=== PATIENT | female | born 1940 | race Caucasian/White ===

== ENCOUNTER 2019-04-15 06:41 | Inpatient (IN) | payer OTHER ==
[2019-04-15] MEDS ORDERED: SEVOFLURANE 15 MIN (07:00)
[2019-04-15] MEDS ORDERED: CEFAZOLIN 1 GM INJ (07:00)
[2019-04-15] MEDS ORDERED: GLYCOPYRROLATE 0.4 MG INJ (07:00)
[2019-04-15] MEDS: LACTATED RINGER'S 1,000 ML IV (07:30)
[2019-04-15] MEDS ORDERED: PROPOFOL 20 ML (07:45)
[2019-04-15] MEDS ORDERED: LIDOCAINE 2% (SDV) 5 ML INJ (07:46)
[2019-04-15] MEDS ORDERED: ROCURONIUM 50 MG INJ ×2 (07:46→09:14)
[2019-04-15] MEDS ORDERED: MIDAZOLAM 1 MG/ML 2 ML INJ (07:47)
[2019-04-15] MEDS ORDERED: FENTAnyl 50 MCG/ML VIAL (07:48)
[2019-04-15] MEDS ORDERED: TRANEXAMIC ACID 1GM/100ML(PMX) 100 ML (07:55)
[2019-04-15] MEDS: TRANEXAMIC ACID 1GM/100ML(PMX) 20 ML IV (08:14)
[2019-04-15] MEDS: BACITRACIN 50000 UNITS INJ (09:03)
[2019-04-15] MEDS: POLYMYXIN B 500000 UNIT INJ (09:03)
[2019-04-15] MEDS: POLYMYXIN/BACITRACIN 1L IRRIG IRR (09:05)
[2019-04-15] MEDS ORDERED: ONDANSETRON 4 MG INJ (10:15)
[2019-04-15] MEDS ORDERED: DEXAMETHASONE 4 MG/ML 5 ML INJ (10:15)
[2019-04-15] MEDS ORDERED: BUPIVACAINE 0.5% (SDV) 30 ML INJ (10:15)
[2019-04-15] MEDS ORDERED: NEOSTIGMINE 3 MG/3 ML SYRINGE (10:25)
[2019-04-15] MEDS ORDERED: NALOXONE (0.4 MG/ML) INJ IV (11:00)
[2019-04-15] MEDS ORDERED: MAGNESIUM HYDROXIDE 30ML CUP PO (11:00)
[2019-04-15] MEDS ORDERED: MEPERIDINE 25 MG INJ IV (11:00)
[2019-04-15] MEDS ORDERED: NA PHOSPHATE/BIPHOS 133 ML ENEMA PR (11:00)
[2019-04-15] MEDS ORDERED: MIDAZOLAM 1 MG/ML 2 ML INJ IV (11:00)
[2019-04-15] MEDS ORDERED: ALBUTEROL 0.083% (NEB) 2.5 MG/3 ML AMP HHN (11:00)
[2019-04-15] MEDS ORDERED: BETHANECHOL 25 MG TAB PO (11:00)
[2019-04-15] MEDS ORDERED: METOCLOPRAMIDE 10 MG INJ IV (11:00)
[2019-04-15] MEDS ORDERED: KETOROLAC 30 MG INJ IV (11:00)
[2019-04-15] MEDS ORDERED: BISACODYL 10 MG SUPP PR (11:00)
[2019-04-15] MEDS ORDERED: SENNA/DOCUSATE NA (8.6MG/50MG) TAB PO (11:00)
[2019-04-15] MEDS ORDERED: NACL 0.9% 3 ML SYG IV (11:00)
[2019-04-15] MEDS ORDERED: hydrALAzine 20 MG INJ IV (11:00)
[2019-04-15] MEDS ORDERED: DIPHENHYDRAMINE 50 MG INJ IV (11:00)
[2019-04-15] MEDS ORDERED: HYDROmorphONE 1 MG/5 ML IV SYRINGE IV ×2 (11:00)
[2019-04-15] MEDS ORDERED: ONDANSETRON 4 MG INJ IV (11:00)
[2019-04-15] MEDS ORDERED: oxyCODONE 5 MG TAB PO (11:00)
[2019-04-15] MEDS ORDERED: FENTAnyl 50 MCG/ML VIAL IV ×3 (11:00)
[2019-04-15] MEDS ORDERED: EPHEDrine 25 MG/5 ML SYG IV (11:00)
[2019-04-15] MEDS ORDERED: LABETALOL HCL 20MG INJ IV (11:00)
[2019-04-15] MEDS: CEFAZOLIN 2 GM/50 ML (PMX) 50 ML IVPB ×2 (11:26→18:27)
[2019-04-15] MEDS: HYDROmorphONE 1 MG/5 ML IV SYRINGE IV (11:42)
[2019-04-15] MEDS: DOCUSATE SODIUM 100 MG CAP PO (11:48)
[2019-04-15] MEDS: SOD CHLORIDE 0.9% 1,000 ML IV (11:56)
[2019-04-15] MEDS: ONDANSETRON 4 MG INJ IV ×2 (11:56→18:27)
[2019-04-15] MEDS: HYDROmorphONE 1 MG/ML SYG IV ×2 (13:50→20:39)
[2019-04-15] MEDS: CALCIUM CARBONATE 1.25 GM TAB PO (20:39)
[2019-04-15] MEDS: CYCLOSPORINE 0.05% OPH DROPERETTE BOTH EYES (21:00)
[2019-04-16] MEDS: ONDANSETRON 4 MG INJ IV ×2 (00:02→06:00)
[2019-04-16] MEDS: SOD CHLORIDE 0.9% 1,000 ML IV (01:07)
[2019-04-16] MEDS: CEFAZOLIN 2 GM/50 ML (PMX) 50 ML IVPB (03:38)
[2019-04-16 06:16] LABS: ADD MAN DIFF? NO
[2019-04-16 06:26] LABS: BASOPHILS % 0.1 % (0.0-2.0); HEMOGLOBIN 11.3 g/dl (12.0-16.0); LYMPHOCYTES % 5.1 % (15.0-51.0); MEAN CORPUSCULAR HEMOGLOBIN 31.2 pg (29.0-33.0); MEAN CORPUSCULAR HGB CONC 33.2 g/dl (32.0-37.0); MEAN CORPUSCULAR VOLUME 93.9 fl (82.0-101.0); MEAN PLATELET VOLUME 10.3 fl (7.4-10.4); MONOCYTE # 1.1 10^3/ul (0.3-0.9); MONOCYTES % 5.4 % (0.0-11.0); NEUTROPHIL # 17.4 10^3/ul (1.6-7.5); NEUTROPHILS % 88.9 % (39.0-77.0); PLATELET COUNT 223 10^3/UL (140-415); RED BLOOD COUNT 3.62 10^6/ul (4.20-5.40); RED CELL DISTRIBUTION WIDTH 12.2 % (11.5-14.5)
[2019-04-16 06:26] LABS: WHITE BLOOD COUNT 19.6 10^3/ul (4.8-10.8)
[2019-04-16] MEDS: NEXIUM 40 MG CAPSULE PO (06:53)
[2019-04-16] MEDS: CYCLOSPORINE 0.05% OPH DROPERETTE BOTH EYES ×2 (06:53→21:13)
[2019-04-16] MEDS: LACTATED RINGER'S 1,000 ML IV (06:55)
[2019-04-16 07:51] LABS: ADD UMIC YES; UR ASCORBIC ACID NEGATIVE (NEGATIVE); UR BACTERIA FEW /HPF (NONE SEEN); UR BILIRUBIN (Dip) NEGATIVE (NEGATIVE); UR BLOOD (Dip) 3+ mg/dL (NEGATIVE); UR CLARITY SLIGHTLY CLOUDY (CLEAR); UR COLOR YELLOW (YELLOW); UR GLUCOSE (Dip) 1+ mg/dL (NEGATIVE); UR KETONES (Dip) NEGATIVE (NEGATIVE); UR LEUKOCYTE ESTERASE (Dip) NEGATIVE Leu/ul (NEGATIVE); UR NITRITE (Dip) NEGATIVE (NEGATIVE); UR RBC > 182 /HPF (0-5); UR SPECIFIC GRAVITY (Dip) 1.009 (1.003-1.030); UR SQUAMOUS EPITHELIAL CELL FEW /HPF (FEW); UR TOTAL PROTEIN (Dip) NEGATIVE (NEGATIVE); UR UROBILINOGEN (Dip) NEGATIVE (NEGATIVE); UR WBC 13 /HPF (0-5)
[2019-04-16] MEDS: HYDROmorphONE 1 MG/ML SYG IV (08:14)
[2019-04-16] MEDS: CHOLECALCIFEROL 1,000 UNIT TAB PO (08:31)
[2019-04-16] MEDS: DOCUSATE SODIUM 100 MG CAP PO ×2 (08:31→21:13)
[2019-04-16] MEDS: VITAMIN B COMPLEX/VIT C CAP PO (08:31)
[2019-04-16] MEDS: CALCIUM CARBONATE 1.25 GM TAB PO ×2 (08:31→21:13)
[2019-04-16] MEDS: HYDROCHLOROTHIAZIDE 25 MG TAB PO (08:32)
[2019-04-16] MEDS: LOSARTAN 25 MG TAB PO (08:32)
[2019-04-16] MEDS: ENOXAPARIN 30 MG/0.3 ML SYG SC ×2 (11:00→21:17)
[2019-04-16] MEDS: oxyCODONE 5 MG TAB PO ×2 (13:15→17:34)
[2019-04-17] MEDS: oxyCODONE 5 MG TAB PO ×2 (00:36→04:51)
[2019-04-17 04:53] LABS: ADD MAN DIFF? NO
[2019-04-17 04:57] LABS: BASOPHIL # 0.1 10^3/ul (0.0-0.1); BASOPHILS % 0.5 % (0.0-2.0); EOSINOPHILS % 0.1 % (0.0-7.0); HEMATOCRIT 32.1 % (37.0-47.0); HEMOGLOBIN 10.9 g/dl (12.0-16.0); LYMPHOCYTES # 1.4 10^3/ul (0.8-2.9); LYMPHOCYTES % 8.3 % (15.0-51.0); MEAN CORPUSCULAR HEMOGLOBIN 31.4 pg (29.0-33.0); MEAN CORPUSCULAR VOLUME 92.5 fl (82.0-101.0); MONOCYTE # 1.5 10^3/ul (0.3-0.9); MONOCYTES % 8.9 % (0.0-11.0); NEUTROPHIL # 13.7 10^3/ul (1.6-7.5); NEUTROPHILS % 81.4 % (39.0-77.0); PLATELET COUNT 191 10^3/UL (140-415); RED BLOOD COUNT 3.47 10^6/ul (4.20-5.40); RED CELL DISTRIBUTION WIDTH 12.3 % (11.5-14.5)
[2019-04-17 04:57] LABS: WHITE BLOOD COUNT 16.8 10^3/ul (4.8-10.8)
[2019-04-17] MEDS ORDERED: PANTOPRAZOLE (EC) 40 MG TAB PO (06:00)
[2019-04-17] MEDS: NEXIUM 40 MG CAPSULE PO (08:51)
[2019-04-17] MEDS: CYCLOSPORINE 0.05% OPH DROPERETTE BOTH EYES (08:51)
[2019-04-17] MEDS: CHOLECALCIFEROL 1,000 UNIT TAB PO (08:52)
[2019-04-17] MEDS: VITAMIN B COMPLEX/VIT C CAP PO (08:52)
[2019-04-17] MEDS: CALCIUM CARBONATE 1.25 GM TAB PO (08:52)
[2019-04-17] MEDS: HYDROCHLOROTHIAZIDE 25 MG TAB PO (08:53)
[2019-04-17] MEDS: LOSARTAN 25 MG TAB PO (08:53)
[2019-04-17] MEDS: DOCUSATE SODIUM 100 MG CAP PO (08:53)
[2019-04-17] MEDS: ENOXAPARIN 30 MG/0.3 ML SYG SC ×2 (08:57→09:00)
[2019-04-17] MEDS: RIVAROXABAN 10 MG TABLET PO (10:18)
== END 2019-04-17 12:07 | disposition home health service (06) | DRG 470 ==
LOC: REC 06:41 → MS1 11:25
PROC: 0SRC0J9 Replacement of Right Knee Joint with Synthetic Substitute, Cemented, Open Approach (ICD-10-PCS; principal; 2019-04-15 08:00)
DX: M17.11 Unilateral primary osteoarthritis, right knee (principal); I10 Essential (primary) hypertension; Z95.0 Presence of cardiac pacemaker
CPT/HCPCS: 73560; 81001; 85025; 87081; 87086; 88304; 88311; 97110; 97116; 97161; 97530